=== PATIENT | female | born 1995 | race Two or more races ===

== ENCOUNTER 2020-07-02 23:11 | Inpatient (IN) | payer MEDICAID, OTHER ==
[~2020-07-02] VITALS: Ht 121.9 cm; Wt 29.5 kg
--- NOTE | 2020-07-02 23:15 | NUR ---
PT BIBRA C/O SOB SAT "80'S" PER RA. PT HAS HX OF COGENITAL MALFORMATION AND CARMEN. PT PLACED IN BED 8 ON USER INTERFACE DESIGNER AND PULSE OX. IV ESTABLISHED LH 22G, BLOOD DRAWN, SENT TO LAB. PT PLACED IN A PEDIATRICS GOWN. ON ROOM AIR PT SAT 88%-95%. AT BEDSIDE FOR EVAL. AWAITING ORDERS. PER REPORT, PT HAD COVID XWEEKS AGO.
--- NOTE | 2020-07-02 23:36 | NUR ---
RADIOLOGY AT BEDSIDE
--- NOTE | 2020-07-02 23:44 | NUR ---
SKYLERID SWABBED, SENT TO LAB.
[2020-07-02 23:56] LABS: BASOPHILS # (AUTO) 0.1 /CMM (0.0-0.2); BASOPHILS % (AUTO) 0.6 % (0.0-2.0); EOSINOPHILS % (AUTO) 4.4 % (0.0-6.0); HEMATOCRIT 44 % (33-45); HEMOGLOBIN 14.2 g/dL (11.5-14.8); LYMPHOCYTES # (AUTO) 3.7 /CMM (0.8-4.8); LYMPHOCYTES % (AUTO) 39.1 % (20.0-44.0); MEAN CORPUSCULAR HGB CONC 33 g/dl (31.0-36.0); MEAN CORPUSCULAR VOLUME 90 fL (82-100); MONOCYTES # (AUTO) 0.5 /CMM (0.1-1.30); MONOCYTES % (AUTO) 5.5 % (2.0-12.0); NEUTROPHILS # (AUTO) 4.8 /CMM (1.8-8.9); NEUTROPHILS % (AUTO) 50.4 % (43.0-81.0); PLATELET COUNT (AUTO) 296 /CMM (150-450); RED BLOOD CELL COUNT(AUTO) 4.85 MIL/uL (4.0-5.2); WHITE BLOOD COUNT (AUTO) 9.5 K/uL (4.3-11.0)
[2020-07-03] MEDS ORDERED: DEXAMETHASONE SOD PHOSPHATE 4 MG/ML VIAL IV ONE
[2020-07-03] MEDS ORDERED: DEXAMETHASONE SOD PHOSPHATE 10 MG/ML VIAL ONE (00:05)
[2020-07-03 00:11] LABS: CARBON DIOXIDE 30 mmol/L (21-32); CHLORIDE 100 mmol/L (98-107); CREATININE 0.6 mg/dL (0.6-1.3); GLUCOSE 135 mg/dL (74-106); POTASSIUM 3.5 mmol/L (3.5-5.1); SODIUM SERUM 140 mmol/L (136-145); UREA NITROGEN, BLOOD 17 mg/dL (7-18)
--- NOTE | 2020-07-03 00:11 | NUR ---
ADMISSION PACKET GIVEN TO ADMITTING
[2020-07-03 00:23] LABS: ALANINE AMINOTRANSFERASE 21 U/L (12-78); ALBUMIN 3.2 g/dL (3.4-5.0); ALKALINE PHOSPHATASE 90 U/L (46-116); ASPARTATE AMINOTRANSFERASE 24 U/L (15-37); B-TYPE NATRIURETIC PEPTIDE 144 PG/ML (0-125); BILIRUBIN,DIRECT 0.1 mg/dL (0.0-0.2); BILIRUBIN,TOTAL 0.3 mg/dL (0.2-1.0); TOTAL PROTEIN, SERUM 7.7 g/dL (6.4-8.2)
[2020-07-03] MEDS ORDERED: D5W IV ONE (00:30)
[2020-07-03] MEDS ORDERED: AZITHROMYCIN IV ONE (00:30)
[2020-07-03] MEDS ORDERED: IV NS 0.9% 1,000 ML BAG IV ONE (00:30)
[2020-07-03] MEDS ORDERED: AZITHROMYCIN 500 MG VIAL ONE (00:32)
[2020-07-03] MEDS ORDERED: CEFTRIAXONE 1GM BAG (ER ONLY) 50 ML IV ONE (00:39)
--- NOTE | 2020-07-03 00:43 | NUR ---
PT SAT 88%-93%. I TRIED TO PLACE PT ON NC BUT WAS NOT ABLE TO DUE TO PT BECOMING AGITATED. ER MD AWARE. PT IS ASLEEP, SAT 91% ON ROOM AIR. VSS.
[2020-07-03] MEDS ORDERED: ACETAMINOPHEN 325 MG TABLET PO PRN (01:00)
[2020-07-03] MEDS ORDERED: CEFTRIAXONE 1 G in IV D5W 50 ML IV ONE (01:00)
[2020-07-03] MEDS ORDERED: ONDANSETRON HCL/PF 4 MG/2 ML VIAL IVP PRN (01:00)
--- NOTE | 2020-07-03 01:49 | NUR ---
ROOM 107
--- NOTE | 2020-07-03 02:05 | NUR ---
RN NOTES RECEIVED ER ADMISSION REPORT FROM [facility]. ALL PERTINENT ADMISSION INFO REGARDING PT NOTED. WILL WAIT FOR PT TO BE TRANSFERRED TO UNIT AND ADDRESS NEEDS ACCORDINGLY. SOCIAL SERVICE WORKER MADE AWARE.
--- NOTE | 2020-07-03 02:13 | NUR ---
REPORT GIVEN TO ZOEY LEY FOR HUBER
[2020-07-03] MEDS ORDERED: ALBUTEROL FS 2.5 MG/3 ML VIAL.NEB NEB PRN (02:30)
--- NOTE | 2020-07-03 02:35 | NUR ---
CONTACTED CARROL GREGG NP REGARDING PT'S DIET.
--- NOTE | 2020-07-03 02:35 | NUR ---
RN NOTES RECEIVED PT FROM ER VIA LESLY ACCOMPANIED BY 2 ER STAFF AND TRANSFERRED TO BED VIA 2 PERSON ASSIST. PT IS CONFUSED. PT ON 2L VIA NC ;WITH RESPIRATIONS EVEN AND UNLABORED. COMPREHENSIVE PHYSICAL ASSESSMENT AND PATIENT CARE DONE. CALL LIGHT WITHIN REACH, SAFETY MEASURES AND ISOLATION PRECAUTION IN PLACE, WILL CONTINUE MONITOR AND ASSESS THROUGHOUT THE SHIFT. WILL CARRY OUT MD ORDERS ACCORDINGLY.
--- NOTE | 2020-07-03 02:35 | NUR ---
PT TRANSFERED PER [facility] PROTOCOL
[2020-07-03 03:00] VITALS: BP 138/91
[2020-07-03 04:00] VITALS: BP 138/91
--- NOTE | 2020-07-03 04:05 | NUR ---
RN NOTES -RECEIVED CRITICAL LAB RESULT FOR LACTIC ACID 2.9, STOCK AND STATION AGENT MADE AWARE. WILL INFORM JOEY CARMEN. -COMMUNICATED WITH JOEY CARMEN REGARDING LACTIC ACID AT 2.9, PROVIDED OTHER PERTINENT INFO ABOUT PT. AWAITING FOR RESPONSE. Addendum: 07/03/20 at 0447 by LALIT MCGRAW RN PER JOEY CARMEN, NO FURTHER ORDERS FOR NOW, JUST MAINTAIN NC ON THE PT.
--- NOTE | 2020-07-03 06:30 | NUR ---
RN NOTES CALLED [facility] ([phone]) , SPOKE WITH SYDNEE CHAVIRA FOR DIET OF PT HE SAID G TUBE FEEDING OF OSMOLITE SMALL POUCH 1.2KCAL 8OZ 4X A DAY VIA G TUBE. PRIMARY RN ASK FOR THE CONNECTOR FOR THE G TUBE, HE MENTIONED HE WILL SEND SOMEONE TO BRING THE CONNECTOR FOR THE G TUBE OF THE PATIENT TODAY. RN ACKNOWLEDGED. MANIFOLD BUILDER MADE AWARE. WILL ENDORSE TO AM SHIFT TO F/U AND TO INFORM MD.
--- NOTE | 2020-07-03 06:49 | NUR ---
RN CLOSING NOTES PATIENT REMAINS IN ROOM IN NO SIGNS OF RESPIRATORY DISTRESS. PATIENT SATURATING 96% OF 02. VITAL SIGNS WNL. IV LINE MAINTAINED, INTACT, PATENT AND FLUSHING, NO SITE REDNESS OR INFILTRATION. SAFETY PRECAUTIONS IN PLACE AND COMFORT MEASURES RENDERED. BED IN LOWEST POSITION, CALL LIGHT WITHIN REACH, BREAKS ON, SIDE RAILS UP. ALL NEEDS ATTENDED, MEDICATIONS GIVEN SCHEDULED AND ORDERED ; SHIFT ASSESSMENT/BEDBATH/SKIN CARE DONE. PATIENT KEPT CLEAN AND DRY. WILL ENDORSE TO INCOMING SHIFT FOR HUBER WITH ALL PERTINENT INFO REGARDING PATIENT STATUS, WILL ALSO ADVISE AM SHIFT RN TO F/U ON THE G TUBE CONNECTOR FROM [facility] AND F/U WITH MD TO ADVISE ABOUT THE DIET BEING FOLLOWED BY PT IN THE BOARD & CARE. .OPTICAL GOODS WORKER MADE AWARE.
--- NOTE | 2020-07-03 07:30 | NUR ---
MED SURG OPENING NOTES Patient is alert and responsive to verbal and physical stimuli. Patient is on 02 via n/c with 02 sat of 94% on 2liters 02. Head of bed kept elevated. patient assigned one on one sitter. Bilateral wrist restraints noted with no s/s of skin breakdown. Will continue to monitor. Call light with in reach.
[2020-07-03 08:00] VITALS: BP 104/77
[2020-07-03] MEDS: DEXAMETHASONE SOD PHOSPHATE 4 MG/ML VIAL IV SCH (08:45)
[2020-07-03] MEDS ORDERED: POLY17PO4 GT (08:48)
[2020-07-03] MEDS ORDERED: VITS5OIN2 TP (08:48)
[2020-07-03] MEDS ORDERED: KETO125S TP (08:48)
[2020-07-03] MEDS ORDERED: ACET160E36 GT (08:48)
[2020-07-03] MEDS ORDERED: METO5SOL20 GT (08:48)
[2020-07-03] MEDS ORDERED: LACT10SO3 GT (08:48)
[2020-07-03] MEDS ORDERED: HYDR30CR99 RC (08:48)
[2020-07-03] MEDS ORDERED: CHLO473M5 MM (08:48)
[2020-07-03] MEDS ORDERED: MELA3TAB41 GT (08:48)
[2020-07-03] MEDS ORDERED: CHOL100062 GT (08:48)
[2020-07-03] MEDS ORDERED: MINE105O TP (08:48)
[2020-07-03] MEDS ORDERED: GUAI100S94 GT (08:48)
[2020-07-03] MEDS ORDERED: NYST500P2 TD (08:48)
[2020-07-03] MEDS ORDERED: ALBU2.5V38 IH (08:48)
[2020-07-03] MEDS ORDERED: OMEP20CA15 GT (08:48)
[2020-07-03] MEDS ORDERED: LACT-89 GT (08:48)
[2020-07-03] MEDS ORDERED: ZINC57OI3 TP (08:48)
[2020-07-03] MEDS ORDERED: HYDR28.32 TP (08:48)
[2020-07-03] MEDS ORDERED: CLIN75GE4 TP (08:48)
[2020-07-03] MEDS ORDERED: LORA10TA7 GT (08:48)
[2020-07-03 11:43] LABS: BASOPHILS % (AUTO) 0.3 % (0.0-2.0); EOSINOPHILS % (AUTO) 0.1 % (0.0-6.0); HEMATOCRIT 43 % (33-45); LYMPHOCYTES # (AUTO) 0.9 /CMM (0.8-4.8); LYMPHOCYTES % (AUTO) 6.1 % (20.0-44.0); MEAN CORPUSCULAR HGB CONC 33 g/dl (31.0-36.0); MEAN CORPUSCULAR VOLUME 90 fL (82-100); MONOCYTES # (AUTO) 0.3 /CMM (0.1-1.30); MONOCYTES % (AUTO) 1.8 % (2.0-12.0); NEUTROPHILS # (AUTO) 14.2 /CMM (1.8-8.9); NEUTROPHILS % (AUTO) 91.7 % (43.0-81.0); PLATELET COUNT (AUTO) 284 /CMM (150-450); RED BLOOD CELL COUNT(AUTO) 4.74 MIL/uL (4.0-5.2); WHITE BLOOD COUNT (AUTO) 15.5 K/uL (4.3-11.0)
[2020-07-03 11:50] LABS: CALCIUM, SERUM 9.4 mg/dL (8.5-10.1); CREATININE 0.6 mg/dL (0.6-1.3); POTASSIUM 4.5 mmol/L (3.5-5.1)
[2020-07-03 12:00] VITALS: BP 110/77
[2020-07-03 12:01] LABS: ALBUMIN 3.2 g/dL (3.4-5.0); BILIRUBIN,TOTAL 0.5 mg/dL (0.2-1.0); PHOSPHORUS 3.8 mg/dL (2.5-4.9); TOTAL PROTEIN, SERUM 7.6 g/dL (6.4-8.2)
[2020-07-03 12:37] LABS: THYROID STIMULATING HORMONE 0.533 uIU/mL (0.358-3.74)
[2020-07-03 13:42] LABS: BAND % (MANUAL) 1 % (0.0-5.0); LYMPHOCYTES % (MANUAL) 5 % (16-48); MONOCYTES % (MANUAL) 2 % (0-11.0); NEUTROPHILS % (MANUAL) 92 (42-76)
--- NOTE | 2020-07-03 14:30 | NUR ---
Urine sample collected per MD orders and sent to lab
[2020-07-03 16:00] VITALS: BP 132/91
[2020-07-03 18:48] LABS: BILIRUBIN,URINE NEGATIVE (NEGATIVE); COLOR,URINE YELLOW (YELLOW); LEUKOCYTE ESTERASE ,URINE NEGATIVE (NEGATIVE); NITRITE, URINE NEGATIVE (NEGATIVE); PH,URINE 8.5 (5.0-8.0); PROTEIN,URINE 30 mg/dl (NEGATIVE); UGLUCOSE NEGATIVE (NEGATIVE); UROBILINOGEN,URINE 0.2 EU/dL (0.2)
--- NOTE | 2020-07-03 19:10 | NUR ---
PT RECEIVED IN BED, ALERT, DEVELOPMENTALLY DELAYED AND NON VERBAL. RESPIRATIONS EVEN AND UNLABORED WITH NO S/S OF DYSPNEA OR SOB. PT IS NPO, G- TUBE IN PLACE AND HOB ELEVATED. ASPIRATION PRECAUTIONS ENFORCED. CAREGIVER AT BEDSIDE. MARIAH WRIST RESTRAINTS IN PLACE. SAFETY MAINTAINED. WILL CONTINUE TO MONITOR.
--- NOTE | 2020-07-03 19:37 | NUR ---
MED SURG OPENING NOTES Patient is alert and responsive to verbal and physical stimuli. Patient is on 02 via n/c with 02 sat of 98% on room air. Head of bed kept elevated. Bilateral wrist restraints noted with no s/s of skin breakdown. Will continue to monitor. Call light with in reach.
[2020-07-03 19:49] LABS: BACTERIA,URINE 1+ /HPF (None Seen); RBC,URINE 0-2 /HPF (0-2); TRIPLE PHOSPHATE CRYSTAL,UR Few /HPF (None Seen)
[2020-07-03 19:50] LABS: SQUAMOUS EPITHELIAL CELL,UR 21-50 /HPF (None Seen)
[2020-07-03 20:00] VITALS: BP 111/75
[2020-07-04] VITALS: BP 100/66
[2020-07-04] MEDS: AZITHROMYCIN IV SCH (00:54)
[2020-07-04] MEDS: D5W IV SCH (00:54)
[2020-07-04] MEDS ORDERED: CEFTRIAXONE IV SCH (02:00)
[2020-07-04] MEDS ORDERED: D5W IV SCH (02:00)
[2020-07-04] MEDS: CEFTRIAXONE 1 G in IV D5W 50 ML IV SCH (02:18)
[2020-07-04 04:00] VITALS: BP 97/57
--- NOTE | 2020-07-04 05:25 | NUR ---
PT REMAINS ALERT AND NON VERBAL. RESPIRATIONS EVEN AND UNLABORED WITH NO S/S OF SOB OR DYSPNEA. DRY NON PRODUCTIVE COUGH NOTED AT TIMES. #22 TO LEFT HAND PATENT AND INFUSING NS AT KVO. G TUBE IN PLACE WITH NO REDNESS TO SURROUNDING SKIN . NO TF INFUSING AT THIS TIME. REMAINS NPO PER MD ORDER,. ABDOMINAL BINDER IN PLACE. BILAT WRIST RESTRAINTS IN PLACE. WHEN RELEASED PT ATTEMPTS TO PUT HER RIGHT THUMB IN HER MOUTH. HOB ELEVATED AND ASPIRATION PRECAUTIONS STRICTLY ENCORCED. CALL LIGHT WITHIN REACH. BED IN LOWEST POSITION. SAFETY MAINTAINED. BED IN LOWEST POSITION. WILL CONTINUE TO MONITOR.
--- NOTE | 2020-07-04 07:50 | NUR ---
RN OPENING NOTE PATIENT IS IN BED WITH HOB AT SEMI HCE POSITION. PATIENT IS CURRENTLY ON ROOM AIR WITH NO SIGNS OF LABORED BREATHING. PATIENT IS AOX1. SACRAL REDNESS AND RIGHT HAND DRYNESS ARE NOTED. #22 LHAND IS PATENT, INTACT, AND HAS NO SIGNS OF INFILTRATION. BED IS LOCKED IN THE LOWEST POSITION, CALL STEINER WITHIN REACH, 3 GUARD RAILS RAISED, AND ALL HOSPITAL SAFETY PRECAUTIONS ARE BEING FOLLOWED. WILL CONTINUE TO MONITOR THROUGHOUT SHIFT.
[2020-07-04 08:00] VITALS: BP 110/68
[2020-07-04] MEDS: DEXAMETHASONE SOD PHOSPHATE 4 MG/ML VIAL IV SCH (08:49)
--- NOTE | 2020-07-04 09:08 | NUR ---
WOUND CARE CONSULT: REVIEWED CHART, NURSING DOCUMENTATION AND PHOTOS WHICH INDICATE PEELING SKIN TO RT THUMB, REDNESS TO INNER BUTTOCKS AND PERINEUM, PRESENT ON ADMISSION. PER NURSING REPORT, PT SUCKS HER THUMB AT TIMES. RECOMMENDATIONS MADE FOR SKIN PROTECTION. DISCUSSED WITH NURSING STAFF. PT MOVES LEGS IN BED. CAREGIVER AT BEDSIDE. MD IN AGREEMENT WITH PLAN OF CARE.
[2020-07-04] MEDS ORDERED: Z GUARD REMEDY 2 OZ OINT TP PRN (09:30)
[2020-07-04] MEDS: Z GUARD REMEDY 2 OZ OINT TP SCH (15:47)
[2020-07-04 16:00] VITALS: BP 128/90
[2020-07-04] MEDS: CLOTRIMAZOLE 1% 15 GM TUBE TP SCH (16:19)
[2020-07-04] MEDS: OSMOLITE 1.2 CAL 1,000 ML LIQUID GT SCH (18:21)
--- NOTE | 2020-07-04 19:19 | NUR ---
RN OPENING NOTE PATIENT IS IN BED WITH HOB AT SEMI CHE POSITION. PATIENT IS CURRENTLY ON ROOM AIR WITH NO SIGNS OF LABORED BREATHING. PATIENT IS AOX1. SACRAL REDNESS AND RIGHT HAND DRYNESS/SKIN TEAR HAVE APPROPRIATE DRESSINGS APPLIED. #22 LHAND IS PATENT, INTACT, AND HAS NO SIGNS OF INFILTRATION. GTUBE IS IN PLACE WITH ABDOMINAL BINDER APPLIED. BED IS LOCKED IN THE LOWEST POSITION, CALL STEINER WITHIN REACH, 3 GUARD RAILS RAISED, AND ALL HOSPITAL SAFETY PRECAUTIONS ARE BEING FOLLOWED. WILL ENDORSE TO FINANCE ASSISTANT RN. Addendum: 07/04/20 at 1921 by ARLENE DUQUE RN *RN CLOSING NOTE
--- NOTE | 2020-07-04 19:30 | NUR ---
RN NOTE RECEIVED PT IN BED. AWAKE, NONVERBAL. NO RESP DISTRESS NOTED. O2 SAT AT 100 % ON ROOM AIR. WITH BILATERAL WRIST RESTRAINTS GOOD CIRCULATION AND SKIN INTACT. IV ON LH PATENT AND INTACT, NO SIGNS OF INFECTION NOTED. GTUBE IN PLACE AND PATENT NO RESIDUAL NOTED. ALL SAFETY MEASURES IMPLEMENTED PER PROTOCOL, CALL LIGHT WITHIN REACH, BED LOCKED IN LOWEST POSITION. SIDE RAILS UP.
[2020-07-04 20:00] VITALS: BP 108/83
[2020-07-05] MEDS: D5W IV SCH (00:24)
[2020-07-05] MEDS: AZITHROMYCIN IV SCH (00:24)
[2020-07-05] MEDS: OSMOLITE 1.2 CAL 1,000 ML LIQUID GT SCH ×4 (00:30→18:15)
[2020-07-05] MEDS: CEFTRIAXONE 1 G in IV D5W 50 ML IV SCH (01:47)
[2020-07-05 04:00] VITALS: BP 96/60
[2020-07-05 05:49] LABS: BASOPHILS # (AUTO) 0.1 /CMM (0.0-0.2); BASOPHILS % (AUTO) 0.6 % (0.0-2.0); EOSINOPHILS % (AUTO) 0.3 % (0.0-6.0); HEMATOCRIT 42 % (33-45); HEMOGLOBIN 13.7 g/dL (11.5-14.8); LYMPHOCYTES # (AUTO) 3.8 /CMM (0.8-4.8); LYMPHOCYTES % (AUTO) 27.8 % (20.0-44.0); MEAN CORPUSCULAR HGB CONC 33 g/dl (31.0-36.0); MEAN CORPUSCULAR VOLUME 91 fL (82-100); MONOCYTES # (AUTO) 0.9 /CMM (0.1-1.30); MONOCYTES % (AUTO) 6.8 % (2.0-12.0); NEUTROPHILS # (AUTO) 8.9 /CMM (1.8-8.9); NEUTROPHILS % (AUTO) 64.5 % (43.0-81.0); PLATELET COUNT (AUTO) 315 /CMM (150-450); RED BLOOD CELL COUNT(AUTO) 4.59 MIL/uL (4.0-5.2); WHITE BLOOD COUNT (AUTO) 13.8 K/uL (4.3-11.0)
[2020-07-05 06:11] LABS: CREATININE 0.7 mg/dL (0.6-1.3); POTASSIUM 3.7 mmol/L (3.5-5.1)
--- NOTE | 2020-07-05 07:01 | NUR ---
RN NOTES PT REMAIN STABLE. NO SIGNIFICANT CHANGES NOTED. NO DISTRESS NOTED. PT TOLERATED GTUBE FEEDINGS. NO ASPIRATION NOTED. KEPT HOB ELEVATED. NO RESIDUALS NOTED. REMAIN RESTRAINTS DUE TO BITING AND PULLING LINES. NO NEW SKIN BREAK DOWN NOTED. GOOD HAND CIRCULATION. ALL DUE ATBS GIVEN ORDERED, NO ASE NOTED. ALL SAFETY MEASURES KEPT MAINTAINED.
--- NOTE | 2020-07-05 07:46 | NUR ---
MS RN NOTE PATIENT IN BED ,AWAKE NONVERBAL WITH MENTALLY DELAY ON RA NO SOB NOTED AT THIS TIME, WITH G TUBE IN PLACE ,NO RESIDUAL NOTED AT THIS TIME WITH SOFT RESTRAIN, ORDERED LH HL INTACT, WILL CONT TO MONITOR , BED IN LOWEST AND LOCKED POSITION WILL CONT TO MONITOR
[2020-07-05] MEDS: DEXAMETHASONE SOD PHOSPHATE 4 MG/ML VIAL IV SCH (08:26)
[2020-07-05] MEDS: CLOTRIMAZOLE 1% 15 GM TUBE TP SCH ×2 (08:26→16:14)
[2020-07-05] MEDS: Z GUARD REMEDY 2 OZ OINT TP SCH (08:31)
[2020-07-05] MEDS ORDERED: HOME MED MISCELLANEOUS XX SCH ×2 (10:30)
[2020-07-05] MEDS ORDERED: POLYETHYLENE GLYCOL 3350 17 GM POWD.PACK GT PRN (10:30)
[2020-07-05] MEDS ORDERED: ALBUTEROL FS 2.5 MG/3 ML VIAL.NEB IH PRN (10:30)
[2020-07-05] MEDS ORDERED: GUAIFENESIN 300 MG/15 ML UDC GT PRN (10:30)
[2020-07-05] MEDS ORDERED: KETOCONAZOLE SHAMPOO 120 ML BOTTLE TP PRN (11:00)
[2020-07-05] MEDS ORDERED: CLINDAMYCIN PHOSPHATE-T 60 ML BOTTLE TP PRN (11:00)
[2020-07-05] MEDS ORDERED: METOCLOPRAMIDE HCL 10 MG/10 ML UDC GT PRN (11:30)
[2020-07-05] MEDS ORDERED: MINERAL OIL/PETROL OINT 396 GM JAR TP PRN (11:30)
[2020-07-05] MEDS: LORATADINE 10 MG TABLET GT SCH (11:49)
[2020-07-05] MEDS: CHOLECALCIFEROL 1,000 UNIT TABLET (VIT D3) GT SCH (11:49)
[2020-07-05] MEDS: ENOXAPARIN SODIUM 30 MG/0.3 ML DISP.SYRIN SQ SCH (11:50)
[2020-07-05] MEDS: VITAMINS A AND D 56.7 GM TUBE TP SCH ×2 (12:54→21:36)
[2020-07-05] MEDS: COD LIVER OIL/ZINC OXIDE 120 GM TUBE TP SCH ×2 (12:54→16:11)
[2020-07-05] MEDS: FIXODENT DENTURE ADHESIVE TUBE MM SCH ×2 (12:55→16:11)
[2020-07-05] MEDS ORDERED: OSMOLITE 1.2 CAL 1,000 ML LIQUID GT SCH (13:00)
[2020-07-05 16:00] VITALS: BP 111/76
[2020-07-05] MEDS: HYDROCORTISONE 1% CREAM 28.35 GM TUBE TP SCH (16:13)
[2020-07-05] MEDS: NYSTATIN OINT 100000 UNIT/G 15 GM TUBE TP SCH (16:13)
[2020-07-05] MEDS: LACTULOSE 10 G/15 ML UDC (PYXIS) GT SCH (16:13)
--- NOTE | 2020-07-05 16:25 | NUR ---
RN NOTE 0815: Received patient awake, unable to cooperate. Tolerated room air. With GARMENT PRESSER restraints on for safety. With GT intact, abdominal binder on for safety. HOB remained 40 degrees or higher. On isolation pre for RO Covid, maintained and observed. 1330: No any significant changes noted at this time. Spoke with father via phone, updated re: patient's condition. 1400: Covid PCR resulted, tomasz, made caregiver at bedside aware. 1620: Tried to report to 3W, nurse not available at this time, CN made aware, will F/U.
--- NOTE | 2020-07-05 16:49 | NUR ---
RN NOTE Transferred patient in good condition, VSS. Moved via bed, with caregiver, checked belongings. PIV intact. Kept clean, warm and dry. Needs anticipated. Endorsed care to [facility].
--- NOTE | 2020-07-05 16:50 | NUR ---
m/s engineering scientist: notes received pt from tele 1 unit via bed accompanied by nurse and private caregiver. pt is developmental delayed, mostly moans, unable to comprehend. on ariana wrist soft restraints, released and repositioned. appears comfortable. vss. call light within reach. will continue to monitor.
[2020-07-05 17:00] VITALS: BP 122/55
[2020-07-05] MEDS ORDERED: HYDROCORTISONE CR 30 GM TUBE RC SCH (17:00)
--- NOTE | 2020-07-05 18:20 | NUR ---
m/s unix administrator: notes bolus of osmolite 237ml given via g-tube, familia. well. no s/s of aspiration. private caregiver remains at bedside. needs attended. will continue to monitor.
--- NOTE | 2020-07-05 19:10 | NUR ---
m/s spray technician: notes report given to nick ([email or web address]) for continuity of care.
--- NOTE | 2020-07-05 19:45 | NUR ---
MS/RN OPENING NOTE RECEIVED PATIENT SITTING UP IN BED. AWAKE, ALERT AND ORIENTED X 1. NO SIGNS OR SYMPTOMS OF PAIN NOTED AT THIS TIME. CONTINUES ON ROOM AIR WITH NO SIGNS OR SYMPTOMS OF RESPIRATORY DISTRESS NOTED. IV ACCESS TO LEFT HAND INTACT AND PATENT. CONTINUES ON RESTRAINTS WITH NO SKIN INJURIES NOTED. CALL LIGHT WITHIN REACH. ASPIRATION, FALL AND SAFETY PRECAUTIONS MAINTAINED. WILL CONTINUE TO MONITOR.
[2020-07-05 20:00] VITALS: BP 99/56
[2020-07-06] VITALS: BP 99/56
[2020-07-06] MEDS: AZITHROMYCIN IV SCH (01:09)
[2020-07-06] MEDS: D5W IV SCH (01:09)
[2020-07-06] MEDS: CEFTRIAXONE 1 G in IV D5W 50 ML IV SCH (02:21)
[2020-07-06] MEDS: VITAMINS A AND D 56.7 GM TUBE TP SCH ×2 (04:10→13:22)
[2020-07-06] MEDS: OSMOLITE 1.2 CAL 1,000 ML LIQUID GT SCH ×3 (05:10→12:17)
--- NOTE | 2020-07-06 06:10 | NUR ---
MS/RN CLOSING NOTE PATIENT CURRENTLY SITTING UP IN BED. AWAKE, ALERT AND ORIENTED X 1. NO SIGNS OR SYMPTOMS OF PAIN NOTED THIS SHIFT. GT PATENT WITH NO RESIDUAL NOTED. RECEIVED SCHEDULED BOLUS FEEDS WITH PATIENT TOLERATING WELL. IV ACCESS TO LEFT HAND #22G INTACT AND PATENT. CONTINUES ON IV ABX. CONTINUES ON ROOM AIR WITH O2 SATS 95-97%. NO SIGNS OR SYMPTOMS OF RESPIRATORY DISTRESS. CALL LIGHT WITHIN REACH. CAREGIVER AT BEDSIDE. ASPIRATION, FALL AND SAFETY PRECAUTIONS MAINTAINED. WILL ENDORSE PLAN OF CARE TO ONCOMING SHIFT.
[2020-07-06 07:07] LABS: BASOPHILS # (AUTO) 0.1 /CMM (0.0-0.2); BASOPHILS % (AUTO) 0.7 % (0.0-2.0); EOSINOPHILS % (AUTO) 0.3 % (0.0-6.0); HEMATOCRIT 41 % (33-45); HEMOGLOBIN 13.5 g/dL (11.5-14.8); LYMPHOCYTES # (AUTO) 3.6 /CMM (0.8-4.8); LYMPHOCYTES % (AUTO) 35.8 % (20.0-44.0); MEAN CORPUSCULAR HGB CONC 33 g/dl (31.0-36.0); MEAN CORPUSCULAR VOLUME 91 fL (82-100); MONOCYTES # (AUTO) 0.8 /CMM (0.1-1.30); MONOCYTES % (AUTO) 8.1 % (2.0-12.0); NEUTROPHILS # (AUTO) 5.5 /CMM (1.8-8.9); NEUTROPHILS % (AUTO) 55.1 % (43.0-81.0); PLATELET COUNT (AUTO) 284 /CMM (150-450); RED BLOOD CELL COUNT(AUTO) 4.53 MIL/uL (4.0-5.2); WHITE BLOOD COUNT (AUTO) 10.1 K/uL (4.3-11.0)
--- NOTE | 2020-07-06 07:30 | NUR ---
MS OPENING NOTES Patient was sleeping upon arrival. Patient A/O x1, non verbal. No s/s of respiratory distress, breathing even and unlabored, on RA. Soft restraints in place both wrist. Abdomen soft, no distention, g-tube in place and patent. No reports of pain/discomfort at this time. Safety precautions in place: bed alarm on, bed locked, bed in lowest position. Skin intact. L hand IV 22 guage patent, no swelling or redness. Patient stable at this time. Call light within reach. Patient seen by MD with plans for discharge.
[2020-07-06 07:33] LABS: CALCIUM, SERUM 8.5 mg/dL (8.5-10.1); CREATININE 0.6 mg/dL (0.6-1.3); MAGNESIUM 1.8 mg/dL (1.8-2.4); PHOSPHORUS 3.3 mg/dL (2.5-4.9); POTASSIUM 3.5 mmol/L (3.5-5.1)
[2020-07-06 08:00] VITALS: BP_SYST 107; BP_SYST 135; BP_DIAS 58; BP_DIAS 60
[2020-07-06] MEDS: CHOLECALCIFEROL 1,000 UNIT TABLET (VIT D3) GT SCH (08:21)
[2020-07-06] MEDS: LORATADINE 10 MG TABLET GT SCH (08:21)
[2020-07-06] MEDS: DEXAMETHASONE SOD PHOSPHATE 4 MG/ML VIAL IV SCH (08:22)
[2020-07-06] MEDS: LACTULOSE 10 G/15 ML UDC (PYXIS) GT SCH ×2 (08:41→16:04)
[2020-07-06] MEDS: FIXODENT DENTURE ADHESIVE TUBE MM SCH ×3 (08:42→16:09)
[2020-07-06] MEDS: ENOXAPARIN SODIUM 30 MG/0.3 ML DISP.SYRIN SQ SCH (08:46)
[2020-07-06] MEDS: COD LIVER OIL/ZINC OXIDE 120 GM TUBE TP SCH ×3 (08:47→16:09)
[2020-07-06] MEDS: HYDROCORTISONE 1% CREAM 28.35 GM TUBE TP SCH ×2 (08:48→16:09)
[2020-07-06] MEDS: CLOTRIMAZOLE 1% 15 GM TUBE TP SCH ×2 (08:48→16:09)
[2020-07-06] MEDS: NYSTATIN OINT 100000 UNIT/G 15 GM TUBE TP SCH ×2 (08:49→16:09)
[2020-07-06] MEDS: Z GUARD REMEDY 2 OZ OINT TP SCH (08:50)
[2020-07-06] MEDS ORDERED: PANTOPRAZOLE 40 MG/PACK PACK GT SCH (09:00)
--- NOTE | 2020-07-06 18:45 | NUR ---
PT TRANSFERRED TO [facility] DISCHARGE INSTRUCTIONS GIVEN ORDERED. ALL QUESTIONS AND CONCERNS ADDRESSED. PATIENT VERBALIZED UNDERSTANDING. IV REMVOED WITH CATHETER INTACT, PRESSURE DRESSING APPLIED. MEDICATION RECONCILIATION FORM COMPLETED AND COPY GIVEN TO PATIENT. REPORT GIVEN TO LISA SCHAEFER AT [facility]. PATIENT TRANSPORTED WITH ALL PERSONAL BELONGINGS. NO DISTRESS NOTED AT TIME OF DEPARTURE. Addendum: 07/06/20 at 1850 by RENETTA VILLALPANDO RN PT TRANSFERRED TO [facility] DISCHARGE INSTRUCTIONS GIVEN ORDERED. ALL QUESTIONS AND CONCERNS ADDRESSED. PATIENT UNABLE TO VERBALIZE UNDERSTANDING. IV REMOVED WITH CATHETER INTACT, PRESSURE DRESSING APPLIED. MEDICATION RECONCILIATION FORM COMPLETED AND COPY GIVEN TO PATIENT. PATIENT TRANSPORTED WITH ALL PERSONAL BELONGINGS. NO DISTRESS NOTED AT TIME OF DEPARTURE.
== END 2020-07-06 18:25 | DRG 720 ==
LOC: ER 23:17 → TELE1 07-03 01:53 → TELE-TD 07-03 02:23 → TELE1 07-03 02:55 → MEDSG1 07-03 08:27 → MED 07-05 16:43
PROVIDERS: ADMIT Registered Nurse; ATTEND Nurse Practitioner Acute Care
DX: A41.9 Sepsis, unspecified organism (principal); J96.01 Acute respiratory failure with hypoxia; K21.9 Gastro-esophageal reflux disease without esophagitis; G80.9 Cerebral palsy, unspecified; E87.2 Acidosis; Z86.16 Personal history of COVID-19; J45.909 Unspecified asthma, uncomplicated; J15.9 Unspecified bacterial pneumonia; F72 Severe intellectual disabilities; G47.30 Sleep apnea, unspecified; Z88.5 Allergy status to narcotic agent; Z88.0 Allergy status to penicillin; Z88.8 Allergy status to other drugs, medicaments and biological substances; Y95 Nosocomial condition; Q87.19 Other congenital malformation syndromes predominantly associated with short stature; I26.99 Other pulmonary embolism without acute cor pulmonale; R13.10 Dysphagia, unspecified; F50.89 Other specified eating disorder; Z68.1 Body mass index [BMI] 19.9 or less, adult
CPT/HCPCS: 36415; 71045-TC; 80048-TC; 80053-TC; 80061-TC; 80076-TC; 81001; 82550-TC; 82728-TC; 83605-TC; 83615-TC; 83735-TC; 83880; 84100-TC; 84443-TC; 84484-TC; 84702-TC; 85025-TC; 85378-TC; 86140-TC; 87040-TC; 87081-TC; C9803; G0378; J0456; J0696; J1100; J1650; J7030; J7050; J7060; U0003

== ENCOUNTER 2023-03-05 10:02 | Emergency (ER) | payer MEDICAID ==
[~2023-03-05] VITALS: Ht 121.9 cm; Wt 22.7 kg
[~2023-03-05 10:02] MED LIST: ACET160E36 GT; ALBU2.5V38 IH; CHLO473M5 MM; CHOL100062 GT; CLIN75GE4 TP; GUAI100S94 GT; HYDR28.32 TP; HYDR30CR99 RC; KETO125S TP; LACT-89 GT; LACT10SO3 GT; LORA10TA7 GT; MELA3TAB41 GT; METO5SOL20 GT; MINE105O TP; NYST500P2 TD; OMEP20CA15 GT; POLY17PO4 GT; VITS5OIN2 TP; ZINC57OI3 TP
[2023-03-05 10:43] LABS: BASOPHILS # (AUTO) 0.1 K/uL (0.0-0.2); BASOPHILS % (AUTO) 0.5 % (0.0-2.0); EOSINOPHILS # (AUTO) 0.8 K/uL (0.0-0.7); EOSINOPHILS % (AUTO) 6.8 % (0.0-6.0); HEMATOCRIT 47 % (33-45); HEMOGLOBIN 15.6 g/dL (11.5-14.8); LYMPHOCYTES # (AUTO) 2.4 K/uL (0.8-4.8); LYMPHOCYTES % (AUTO) 20.5 % (20.0-44.0); MEAN CORPUSCULAR HEMOGLOBIN 31 PG (26.0-33.0); MEAN CORPUSCULAR HGB CONC 33 g/dl (31.0-36.0); MEAN CORPUSCULAR VOLUME 95 fL (82-100); MONOCYTES % (AUTO) 8.5 % (2.0-12.0); NEUTROPHILS # (AUTO) 7.5 K/uL (1.8-8.9); NEUTROPHILS % (AUTO) 63.7 % (43.0-81.0); PLATELET COUNT (AUTO) 287 K/uL (150-450); RED BLOOD CELL COUNT(AUTO) 4.95 MIL/uL (4.0-5.2); RED CELL DISTRIBUTION WIDTH 12.7 % (11.5-15.0); WHITE BLOOD COUNT (AUTO) 11.7 K/uL (4.3-11.0)
[2023-03-05] MEDS ORDERED: MINE50OI TP (10:48)
[2023-03-05] MEDS ORDERED: LACT-96 GT (10:48)
[2023-03-05] MEDS ORDERED: LACT1CAP71 GT (10:48)
[2023-03-05] MEDS ORDERED: MULT-16 GT (10:48)
[2023-03-05] MEDS ORDERED: [UNRECOGNIZED DRUG - CODE] TP (10:48)
[2023-03-05] MEDS ORDERED: AMIN30LI2 GT (10:48)
[2023-03-05] MEDS ORDERED: [UNRECOGNIZED DRUG - CODE] GT (10:48)
[2023-03-05] MEDS ORDERED: RISP0.2515 GT (10:48)
[2023-03-05] MEDS ORDERED: SIME-9 GT (10:48)
[2023-03-05] MEDS ORDERED: LOPE-206 GT (10:48)
[2023-03-05] MEDS ORDERED: BUDE0.5A IH (10:48)
[2023-03-05] MEDS ORDERED: KETO5DRO EACHEYE (10:48)
[2023-03-05] MEDS ORDERED: HYDR28.469 TP (10:48)
[2023-03-05] MEDS ORDERED: CALA177L16 TP (10:48)
[2023-03-05 11:00] VITALS: TEMP 98
[2023-03-05 11:23] LABS: INR 1.04 (0.91-1.10); PARTIAL THROMBOPLASTIN TIME 24.7 SEC (24.3-34.3)
[2023-03-05 11:44] LABS: CALCIUM, SERUM 9.1 mg/dL (8.5-10.1); CREATININE 0.4 mg/dL (0.6-1.3); POTASSIUM 3.3 mmol/L (3.5-5.1)
[2023-03-05 11:52] LABS: ALBUMIN 3.4 g/dL (3.4-5.0); BILIRUBIN,DIRECT 0.2 mg/dL (0.0-0.2); BILIRUBIN,TOTAL 0.7 mg/dL (0.2-1.0); TOTAL PROTEIN, SERUM 7.9 g/dL (6.4-8.2)
[2023-03-05] MEDS ORDERED: ZINC OXIDE 56.7 GM TUBE TP PRN (14:00)
[2023-03-05 15:03] LABS: APPEARANCE,URINE CLEAR (CLEAR); BILIRUBIN,URINE NEGATIVE (NEGATIVE); BLOOD, URINE NEGATIVE Ery/uL (NEGATIVE); COLOR,URINE YELLOW (YELLOW); KETONES,URINE 1+ mg/dL (NEGATIVE); LEUKOCYTE ESTERASE ,URINE NEGATIVE (NEGATIVE); NITRITE, URINE NEGATIVE (NEGATIVE); PH,URINE 6.5 (5.0-8.0); PROTEIN,URINE NEGATIVE (NEGATIVE); UGLUCOSE NEGATIVE (NEGATIVE); UROBILINOGEN,URINE 0.2 EU/dL (0.2)
[2023-03-05 15:16] LABS: PREGNANCY TEST URINE QUAL NEGATIVE (NEGATIVE)
[2023-03-05 15:21] LABS: ADD URINE CULTURE NO; BACTERIA,URINE 1+ /HPF (None Seen); RBC,URINE 0-2 /HPF (0-2); SQUAMOUS EPITHELIAL CELL,UR 0-2 /HPF (None Seen); WBC,URINE NONE SEEN /HPF (0-3)
[2023-03-05] MEDS ORDERED: IV NS 0.9% 1,000 ML BAG IV ONE (16:00)
[2023-03-06 02:11] VITALS: BP 115/83; O2SAT 94
== END 2023-03-06 02:26 | disposition short-term general hospital (02) ==
LOC: ER 10:04
DX: U07.1 COVID-19 (principal); F50.89 Other specified eating disorder; G80.9 Cerebral palsy, unspecified; R14.0 Abdominal distension (gaseous); R10.2 Pelvic and perineal pain; K21.9 Gastro-esophageal reflux disease without esophagitis; J45.909 Unspecified asthma, uncomplicated; Z79.899 Other long term (current) drug therapy; Z68.1 Body mass index [BMI] 19.9 or less, adult; Z88.0 Allergy status to penicillin; Z88.5 Allergy status to narcotic agent
CPT/HCPCS: 99285; 74176; 87426; 85025; 80048; 83690; 80076; 84703; 81001; 36415; 85730; 84702; C9803

== ENCOUNTER 2024-02-06 02:30 | Inpatient (IN) | payer MEDICAID ==
[~2024-02-06] VITALS: Ht 106.7 cm; Wt 20.9 kg
[2024-02-06] VITALS (54 sets, daily range): BP systolic 35–95; BP diastolic 21–79; TEMP 97.7–98; O2SAT 75–100
[~2024-02-06 02:30] MED LIST changes: +AMIN30LI2 GT; +BUDE0.5A IH; +CALA177L16 TP; +HYDR28.469 TP; -HYDR30CR99 RC; +KETO5DRO EACHEYE; -LACT-89 GT; +LACT-96 GT; -LACT10SO3 GT; +LACT1CAP71 GT; +LOPE-206 GT; -MINE105O TP; +MINE50OI TP; +MULT-16 GT; +RISP0.2515 GT; +SIME-9 GT; -ZINC57OI3 TP; +[UNRECOGNIZED DRUG - CODE] GT; +[UNRECOGNIZED DRUG - CODE] TP
[2024-02-06] MEDS ORDERED: DEXTROSE 50%-WATER 50 ML DISP.SYRIN ONE (02:54)
[2024-02-06] MEDS ORDERED: EPINEPHRINE (1:10,000) SYRINGE 1 MG/10 ML DISP.SYRIN ONE (03:00)
[2024-02-06] MEDS: SUCCINYLCHOLINE CHLORIDE 20 MG/ML VIAL IV ONE (03:30)
[2024-02-06] MEDS: IV NS 0.9% 1,000 ML IV ONE (03:47)
[2024-02-06] MEDS ORDERED: PROPOFOL 100 ML ONE (03:58)
[2024-02-06] MEDS ORDERED: NOREPINEPHRINE 8MG/250ML RTU 250 ML IV ONE (04:09)
[2024-02-06] MEDS: NOREPINEPHRINE 8 MG in IV D5W 242 ML IV PRN ×2 (04:15→21:11)
[2024-02-06 04:19] LABS: CREATININE 1.1 mg/dL (0.6-1.3); GLUCOSE 110 mg/dL (74-106); UREA NITROGEN, BLOOD 36 mg/dL (7-18)
[2024-02-06 04:21] LABS: MONOCYTES # (AUTO) 0.5 K/uL (0.1-1.30)
[2024-02-06 04:26] LABS: BASOPHILS % (AUTO) 0.5 % (0.0-2.0); EOSINOPHILS % (AUTO) 0.2 % (0.0-6.0); HEMATOCRIT 33 % (33-45); HEMOGLOBIN 9.5 g/dL (11.5-14.8); LYMPHOCYTES # (AUTO) 0.9 K/uL (0.8-4.8); LYMPHOCYTES % (AUTO) 10.5 % (20.0-44.0); MEAN CORPUSCULAR HEMOGLOBIN 32 PG (26.0-33.0); MEAN CORPUSCULAR HGB CONC 29 g/dl (31.0-36.0); MEAN CORPUSCULAR VOLUME 111 fL (82-100); MONOCYTES % (AUTO) 5.9 % (2.0-12.0); NEUTROPHILS # (AUTO) 7.3 K/uL (1.8-8.9); NEUTROPHILS % (AUTO) 82.9 % (43.0-81.0); PLATELET COUNT (AUTO) 154 K/uL (150-450); RED BLOOD CELL COUNT(AUTO) 2.94 MIL/uL (4.0-5.2); RED CELL DISTRIBUTION WIDTH 15.1 % (11.5-15.0); WHITE BLOOD COUNT (AUTO) 8.9 K/uL (4.3-11.0)
[2024-02-06 04:29] LABS: CHLORIDE 134 mmol/L (98-107); POTASSIUM 1.2 mmol/L (3.5-5.1); SODIUM SERUM 159 mmol/L (136-145)
[2024-02-06 04:30] LABS: CALCIUM, SERUM 2.4 mg/dL (8.5-10.1); CARBON DIOXIDE 5 mmol/L (21-32)
[2024-02-06] MEDS: Calcium Gluconate 1GM/10ML 4.65 MEQ in IV NS 0.9% 100 ML IV ONE (04:30)
[2024-02-06] MEDS: POTASSIUM CL. PREMIX PERIPHER. 50 ML IV SCH (04:30)
[2024-02-06 04:33] LABS: ALANINE AMINOTRANSFERASE 67 U/L (12-78); ALKALINE PHOSPHATASE 20 U/L (46-116); ASPARTATE AMINOTRANSFERASE 108 U/L (15-37); BILIRUBIN,TOTAL 0.1 mg/dL (0.2-1.0); NT-PRO BNP 1078 pg/mL (0-125); TOTAL PROTEIN, SERUM 0.7 g/dL (6.4-8.2)
[2024-02-06 04:37] LABS: LACTIC ACID 6.6 mmol/L (0.4-2.0)
[2024-02-06] MEDS ORDERED: POTASSIUM CL. PREMIX PERIPHER. 50 ML ONE ×2 (04:38→05:34)
[2024-02-06] MEDS ORDERED: Calcium Gluconate 0.465 MEQ/ML VIAL IV ONE (04:38)
[2024-02-06] MEDS ORDERED: ALBUMIN 25% 50 ML IV ONE (05:02)
[2024-02-06 05:22] LABS: ABG BASE EXCESS -15.3 mmol/L (-2.0-3.0); ABG OXYGEN SATURATION 99.5 % (94.0-98.0); ABG PCO2 39.9 mmHg (32.0-45.0); ABG PH 7.133 (7.350-7.450); ABG PO2 574.1 mmHg (83.0-108.0); ABG TOTAL HEMOGLOBIN 13.1 G/dL (12.0-16.0); COHb 0.2 % (0.5-1.5); MetHb 0.5 % (0.0-1.5); O2Hb 98.8 % (94.0-97.0); PEEP,BG 0 cm H2O; SITE, ABG LEFT BRACHIAL; VT, ABG 225 mL
[2024-02-06] MEDS ORDERED: VANCOMYCIN HCL 1.25 GM in IV D5W 260 ML IV ONE (05:30)
[2024-02-06] MEDS: ALBUMIN 25% 12.5 GM/50 ML BOTTLE IV ONE (05:35)
[2024-02-06 05:47] LABS: ANISOCYTOSIS 1+; LYMPHOCYTES % (MANUAL) 10 % (16-48); METAMYELOCYTES % 1 % (0-0); MONOCYTES % (MANUAL) 4 % (0-11.0); NEUTROPHILS % (MANUAL) 85 (42-76); PLATELET ESTIMATE ADEQUATE
[2024-02-06] MEDS ORDERED: VANCOMYCIN 500 MG VIAL ONE (05:56)
[2024-02-06] MEDS ORDERED: VANCOMYCIN 1 GM /D5W 250 ML PB IV ONE (05:56)
[2024-02-06] MEDS ORDERED: DOPamine 400MG/D5W 250ML RTU 250 ML ONE (05:57)
[2024-02-06] MEDS: DOPamine 400 MG/D5W 250 ML RTU BAG IV ONE (06:00)
[2024-02-06] MEDS: PROPOFOL 100 ML IV PRN (06:23)
[2024-02-06] MEDS ORDERED: SODIUM BICARBONATE SYR 50 MEQ/50 ML DISP.SYRIN ONE ×2 (06:26→06:35)
[2024-02-06] MEDS: PANTOPRAZOLE 40 MG VIAL IV ONE (06:30)
[2024-02-06] MEDS: SODIUM BICARBONATE SYR 100 MEQ in IV D5W 1,000 ML IV ONE (06:30)
[2024-02-06] MEDS ORDERED: PANTOPRAZOLE 40 MG VIAL ONE (06:43)
[2024-02-06] MEDS: VANCOMYCIN 1 GM in IV D5W 250ml IV ONE (07:00)
[2024-02-06 08:35] LABS: CALCIUM, SERUM 7.7 mg/dL (8.5-10.1); POTASSIUM 6.1 mmol/L (3.5-5.1)
[2024-02-06 08:39] LABS: INR 1.62 (0.91-1.10); PARTIAL THROMBOPLASTIN TIME 28.9 SEC (24.3-34.3); PROTHROMBIN TIME 16.6 SECS (9.2-11.1)
[2024-02-06 08:40] LABS: BILIRUBIN,DIRECT 0.3 mg/dL (0.0-0.2)
[2024-02-06] MEDS ORDERED: ZINC57OI3 TP (08:40)
[2024-02-06] MEDS ORDERED: LINA72CA GT (08:40)
[2024-02-06] MEDS ORDERED: POTA10CA43 GT (08:40)
[2024-02-06] MEDS ORDERED: SIME40DR72 GT (08:40)
[2024-02-06] MEDS ORDERED: LIDO5CRE18 TP (08:40)
[2024-02-06] MEDS ORDERED: [UNRECOGNIZED DRUG - OTHER] TP (08:40)
[2024-02-06] MEDS ORDERED: LACT-89 GT (08:40)
[2024-02-06] MEDS ORDERED: MIRT-90 GT (08:40)
[2024-02-06] MEDS ORDERED: PETR18JE3 TP (08:40)
[2024-02-06 08:49] LABS: CREATININE 5.5 mg/dL (0.6-1.3)
[2024-02-06 09:01] LABS: HEMOGLOBIN 12.2 g/dL (11.5-14.8)
[2024-02-06 09:02] LABS: ABG BASE EXCESS -7.4 mmol/L (-2.0-3.0); ABG OXYGEN SATURATION 95.8 % (94.0-98.0); ABG PCO2 50.4 mmHg (32.0-45.0); ABG PH 7.225 (7.350-7.450); ABG PO2 107.3 mmHg (83.0-108.0); COHb 0.2 % (0.5-1.5); MetHb 0.6 % (0.0-1.5)
[2024-02-06 09:20] LABS: OCCULT BLOOD STOOL POSITIVE (NEGATIVE)
[2024-02-06 09:27] LABS: LACTIC ACID REFLEX 14.4 mmol/L (0.4-1.9)
[2024-02-06 09:46] LABS: APPEARANCE,URINE SLIGHTLY CLOUDY (CLEAR); BILIRUBIN,URINE NEGATIVE (NEGATIVE); BLOOD, URINE 3+ Ery/uL (NEGATIVE); COLOR,URINE YELLOW (YELLOW); KETONES,URINE NEGATIVE (NEGATIVE); LEUKOCYTE ESTERASE ,URINE NEGATIVE (NEGATIVE); NITRITE, URINE NEGATIVE (NEGATIVE); PROTEIN,URINE 2+ mg/dl (NEGATIVE); UGLUCOSE 2+ mg/dL (NEGATIVE); UROBILINOGEN,URINE 0.2 EU/dL (0.2)
[2024-02-06] MEDS ORDERED: SODIUM POLYSTYRENE SULFONATE 15 G/60 ML BOTTLE ONE ×2 (09:59)
[2024-02-06 10:01] LABS: ADD URINE CULTURE NO; BACTERIA,URINE 1+ /HPF (None Seen)
[2024-02-06] MEDS: SODIUM POLYSTYRENE SULFONATE 15 G/60 ML BOTTLE GT ONE (10:40)
[2024-02-06] MEDS ORDERED: MAG HYDROX/AL HYDROX/SIMETH 30 ML UDC PO PRN (12:30)
[2024-02-06] MEDS ORDERED: Z GUARD REMEDY 4 OZ OINT TP PRN (12:30)
[2024-02-06] MEDS ORDERED: ONDANSETRON HCL/PF 4 MG/2 ML VIAL IVP PRN (12:30)
[2024-02-06] MEDS ORDERED: ACETAMINOPHEN 325 MG TABLET PO PRN (12:30)
[2024-02-06] MEDS ORDERED: MAGNESIUM HYDROXIDE 30 ML UDC PO PRN (12:30)
[2024-02-06 13:46] LABS: CALCIUM, SERUM 6.4 mg/dL (8.5-10.1); CREATININE 4.6 mg/dL (0.6-1.3); MAGNESIUM 3.9 mg/dL (1.8-2.4)
[2024-02-06 13:56] LABS: EOSINOPHILS # (AUTO) 0.1 K/uL (0.0-0.7); EOSINOPHILS % (AUTO) 0.5 % (0.0-6.0); HEMATOCRIT 42 % (33-45); HEMOGLOBIN 13.7 g/dL (11.5-14.8); LYMPHOCYTES # (AUTO) 0.5 K/uL (0.8-4.8); LYMPHOCYTES % (AUTO) 3.7 % (20.0-44.0); MEAN CORPUSCULAR HEMOGLOBIN 32 PG (26.0-33.0); MEAN CORPUSCULAR HGB CONC 33 g/dl (31.0-36.0); MEAN CORPUSCULAR VOLUME 97 fL (82-100); MONOCYTES # (AUTO) 0.3 K/uL (0.1-1.30); MONOCYTES % (AUTO) 2.5 % (2.0-12.0); NEUTROPHILS # (AUTO) 11.6 K/uL (1.8-8.9); NEUTROPHILS % (AUTO) 93.3 % (43.0-81.0); PHOSPHORUS 9.4 mg/dL (2.5-4.9); PLATELET COUNT (AUTO) 177 K/uL (150-450); RED BLOOD CELL COUNT(AUTO) 4.31 MIL/uL (4.0-5.2); RED CELL DISTRIBUTION WIDTH 13.7 % (11.5-15.0); WHITE BLOOD COUNT (AUTO) 12.4 K/uL (4.3-11.0)
[2024-02-06] MEDS ORDERED: DOPamine 800 MG in IV D5W 250 ML IV PRN (14:30)
[2024-02-06 15:17] LABS: ANISOCYTOSIS 1+; BAND % (MANUAL) 11 % (0.0-5.0); LYMPHOCYTES % (MANUAL) 15 % (16-48); MONOCYTES % (MANUAL) 2 % (0-11.0); NEUTROPHILS % (MANUAL) 72 (42-76); PLATELET ESTIMATE ADEQUATE
[2024-02-06] MEDS ORDERED: DOPamine 400 MG in IV D5W 250 ML IV PRN (15:30)
[2024-02-06] MEDS: CEFEPIME 2 GM in IV D5W 100 ML IV ONE (15:36)
[2024-02-06] MEDS ORDERED: PHENYLEPHRINE 50 MG in IV NS 0.9% 245 ML IV PRN (16:00)
[2024-02-06] MEDS: D5W IV PRN (16:26)
[2024-02-06] MEDS: PHENYLEPHRINE IV PRN (16:26)
[2024-02-06] MEDS: Sodium Bicarbonate 50 MEQ in IV D5 / 0.2% NACL 1,000 ML IV SCH (17:14)
[2024-02-06] MEDS: BLOOD SUGAR DIAGNOSTIC 1 EACH STRIP VI SCH (17:39)
[2024-02-06] MEDS: *INSULIN REGULAR(HUMULIN R)HUM 100 UNIT/ML VIAL SQ PRN (17:41)
[2024-02-06 18:56] LABS: ABG BASE EXCESS 2.1 mmol/L (-2.0-3.0); ABG OXYGEN SATURATION 81.4 % (94.0-98.0); ABG PCO2 47.5 mmHg (32.0-45.0); ABG PH 7.386 (7.350-7.450); ABG PO2 50.7 mmHg (83.0-108.0); ABG TOTAL HEMOGLOBIN 14.1 G/dL (12.0-16.0); COHb 0.1 % (0.5-1.5); MetHb 0.4 % (0.0-1.5); SITE, ABG RIGHT FEMORAL
[2024-02-06] MEDS ORDERED: KETAMINE HCL(200MG/20ML) 10 MG/ML VIAL IV PRN (19:30)
[2024-02-06 20:27] LABS: ABG BASE EXCESS 1.8 mmol/L (-2.0-3.0); ABG OXYGEN SATURATION 85.7 % (94.0-98.0); ABG PCO2 47.8 mmHg (32.0-45.0); ABG PH 7.379 (7.350-7.450); ABG PO2 55.9 mmHg (83.0-108.0); ABG TOTAL HEMOGLOBIN 14.1 G/dL (12.0-16.0); COHb 0.1 % (0.5-1.5); MetHb 0.4 % (0.0-1.5); O2Hb 85.3 % (94.0-97.0); SITE, ABG ALINE
[2024-02-06] MEDS: DOPamine 400 MG in IV D5W 250 ML IV PRN (20:57)
[2024-02-06 22:26] LABS: ABG OXYGEN SATURATION 93.2 % (94.0-98.0); ABG PCO2 63.4 mmHg (32.0-45.0); ABG PH 7.282 (7.350-7.450); ABG PO2 80.3 mmHg (83.0-108.0); ABG TOTAL HEMOGLOBIN 13.8 G/dL (12.0-16.0); COHb 0.3 % (0.5-1.5); MetHb 0.4 % (0.0-1.5); O2Hb 92.5 % (94.0-97.0); SITE, ABG ALINE
[2024-02-07] VITALS (95 sets, daily range): BP systolic 59–172; BP diastolic 12–105; TEMP 97.4–98.6; O2SAT 95–100
[2024-02-07] MEDS: HYDROCORTISONE SOD SUCCINATE 100 MG/2 ML VIAL IV SCH (00:06)
[2024-02-07 00:22] LABS: ABG OXYGEN SATURATION 97.8 % (94.0-98.0); ABG PCO2 48.6 mmHg (32.0-45.0); ABG PH 7.362 (7.350-7.450); ABG TOTAL HEMOGLOBIN 12.9 G/dL (12.0-16.0); COHb 0.3 % (0.5-1.5); MetHb 0.5 % (0.0-1.5); SITE, ABG ALINE
[2024-02-07 04:59] LABS: BASOPHILS % (AUTO) 0.3 % (0.0-2.0); EOSINOPHILS % (AUTO) 0.3 % (0.0-6.0); HEMATOCRIT 35 % (33-45); HEMOGLOBIN 11.7 g/dL (11.5-14.8); LYMPHOCYTES # (AUTO) 0.4 K/uL (0.8-4.8); LYMPHOCYTES % (AUTO) 18.4 % (20.0-44.0); MEAN CORPUSCULAR HEMOGLOBIN 31 PG (26.0-33.0); MEAN CORPUSCULAR HGB CONC 34 g/dl (31.0-36.0); MEAN CORPUSCULAR VOLUME 94 fL (82-100); MONOCYTES # (AUTO) 0.1 K/uL (0.1-1.30); MONOCYTES % (AUTO) 4.6 % (2.0-12.0); NEUTROPHILS # (AUTO) 1.6 K/uL (1.8-8.9); NEUTROPHILS % (AUTO) 76.4 % (43.0-81.0); PLATELET COUNT (AUTO) 57 K/uL (150-450); RED BLOOD CELL COUNT(AUTO) 3.72 MIL/uL (4.0-5.2); RED CELL DISTRIBUTION WIDTH 13.3 % (11.5-15.0); WHITE BLOOD COUNT (AUTO) 2.2 K/uL (4.3-11.0)
[2024-02-07 05:24] LABS: CREATININE 3.9 mg/dL (0.6-1.3); MAGNESIUM 3.2 mg/dL (1.8-2.4); PHOSPHORUS 7.5 mg/dL (2.5-4.9)
[2024-02-07 08:15] LABS: ABG BASE EXCESS 2.8 mmol/L (-2.0-3.0); ABG OXYGEN SATURATION 98.6 % (94.0-98.0); ABG PCO2 39.3 mmHg (32.0-45.0); ABG PH 7.452 (7.350-7.450); ABG PO2 157.6 mmHg (83.0-108.0); ABG TOTAL HEMOGLOBIN 11.9 G/dL (12.0-16.0); COHb 0.3 % (0.5-1.5); MetHb 0.1 % (0.0-1.5); O2Hb 98.2 % (94.0-97.0); SITE, ABG ALINE
[2024-02-07 08:59] LABS: BAND % (MANUAL) 8 % (0.0-5.0); LYMPHOCYTES % (MANUAL) 36 % (16-48); MONOCYTES % (MANUAL) 26 % (0-11.0); NEUTROPHILS % (MANUAL) 30 (42-76)
[2024-02-07 09:01] LABS: ANISOCYTOSIS 1+; PLATELET ESTIMATE DECREASED
[2024-02-07] MEDS: PANTOPRAZOLE 40 MG VIAL IV SCH (09:10)
[2024-02-07] MEDS: INSULIN REGULAR, HUMAN 100 UNIT/ML 3 ML VIAL SQ PRN (09:14)
[2024-02-07] MEDS: IV LR 1000 ML 1,000 ML IV PRN (09:48)
[2024-02-07] MEDS: POTASSIUM CL. PREMIX PERIPHER. 50 ML IV SCH (10:18)
[2024-02-07] MEDS ORDERED: POLYVINYL ALCOHOL 15 ML BOTTLE EACHEYE PRN (11:00)
[2024-02-07] MEDS ORDERED: ALBUMIN 25% 25 GM in PREMIX 1 EA IV SCH (12:00)
[2024-02-07] MEDS: PHENYLEPHRINE 100 MG in IV NS 0.9% 240 ML IV PRN (12:38)
[2024-02-07] MEDS: ALBUMIN 25% 12.5 GM in PREMIX 1 EA IV SCH (13:26)
[2024-02-07] MEDS: NOREPINEPHRINE 32 MG in IV NS 0.9% 218 ML IV PRN (13:28)
[2024-02-07] MEDS: CEFEPIME 1 GM in IV D5W 50 ML IV SCH (14:06)
[2024-02-07 15:21] LABS: CALCIUM, SERUM 6.7 mg/dL (8.5-10.1); CREATININE 3.8 mg/dL (0.6-1.3); MAGNESIUM 2.9 mg/dL (1.8-2.4); PHOSPHORUS 7.6 mg/dL (2.5-4.9); POTASSIUM 5.2 mmol/L (3.5-5.1)
[2024-02-07 16:48] LABS: APPEARANCE,URINE CLEAR (CLEAR); BILIRUBIN,URINE NEGATIVE (NEGATIVE); BLOOD, URINE 3+ Ery/uL (NEGATIVE); COLOR,URINE YELLOW (YELLOW); KETONES,URINE NEGATIVE (NEGATIVE); LEUKOCYTE ESTERASE ,URINE NEGATIVE (NEGATIVE); NITRITE, URINE NEGATIVE (NEGATIVE); PROTEIN,URINE TRACE mg/dl (NEGATIVE); UGLUCOSE TRACE mg/dL (NEGATIVE); UROBILINOGEN,URINE 0.2 EU/dL (0.2)
[2024-02-07 16:54] LABS: CREATININE, URINE 21.9 MG/DL (30.0-125.0); URINE TOTAL PROTEIN 65.3 mg/dL (0-11.9)
[2024-02-07] MEDS: POLYVINYL ALCOHOL 15 ML BOTTLE EACHEYE SCH (17:17)
[2024-02-07 17:30] LABS: ADD URINE CULTURE YES; BACTERIA,URINE 2+ /HPF (None Seen); MUCUS,URINE Moderate /LPF (None Seen); WBC,URINE 0-2 /HPF (0-3)
[2024-02-07] MEDS: DEXTROSE 50%-WATER 50 ML DISP.SYRIN IV PRN (17:32)
[2024-02-07 18:35] LABS: EOSINOPHIL,URINE None Seen
[2024-02-08] VITALS (102 sets, daily range): BP systolic 79–125; BP diastolic 40–75; TEMP 97.8–98.4; O2SAT 77–100
[2024-02-08] MEDS: BLOOD SUGAR DIAGNOSTIC 1 EACH STRIP IN SCH (00:11)
[2024-02-08] MEDS: DEXTROSE 50%-WATER 50 ML DISP.SYRIN IV PRN (00:15)
[2024-02-08] MEDS: INSULIN REGULAR, HUMAN 100 UNIT/ML 3 ML VIAL SQ PRN (05:25)
[2024-02-08 07:21] LABS: ALBUMIN 2.3 g/dL (3.4-5.0); BILIRUBIN,TOTAL 1.9 mg/dL (0.2-1.0); CALCIUM, SERUM 7.4 mg/dL (8.5-10.1); CREATININE 3.7 mg/dL (0.6-1.3); MAGNESIUM 2.7 mg/dL (1.8-2.4); PHOSPHORUS 6.7 mg/dL (2.5-4.9); POTASSIUM 3.8 mmol/L (3.5-5.1); TOTAL PROTEIN, SERUM 4.4 g/dL (6.4-8.2)
[2024-02-08] MEDS: IV D5/0.45 NACL 1,000 ML IV PRN (08:06)
[2024-02-08 10:27] LABS: BASOPHILS # (AUTO) 0.1 K/uL (0.0-0.2); BASOPHILS % (AUTO) 0.3 % (0.0-2.0); EOSINOPHILS # (AUTO) 0.2 K/uL (0.0-0.7); EOSINOPHILS % (AUTO) 0.8 % (0.0-6.0); HEMATOCRIT 27 % (33-45); LYMPHOCYTES # (AUTO) 0.3 K/uL (0.8-4.8); LYMPHOCYTES % (AUTO) 1.6 % (20.0-44.0); MEAN CORPUSCULAR HEMOGLOBIN 32 PG (26.0-33.0); MEAN CORPUSCULAR HGB CONC 34 g/dl (31.0-36.0); MEAN CORPUSCULAR VOLUME 94 fL (82-100); MONOCYTES # (AUTO) 0.1 K/uL (0.1-1.30); MONOCYTES % (AUTO) 0.7 % (2.0-12.0); NEUTROPHILS # (AUTO) 19.8 K/uL (1.8-8.9); NEUTROPHILS % (AUTO) 96.6 % (43.0-81.0); RED BLOOD CELL COUNT(AUTO) 2.86 MIL/uL (4.0-5.2); RED CELL DISTRIBUTION WIDTH 13.1 % (11.5-15.0); WHITE BLOOD COUNT (AUTO) 20.4 K/uL (4.3-11.0)
[2024-02-08 10:33] LABS: PLATELET COUNT (AUTO) 5 K/uL (150-450)
[2024-02-08 10:50] LABS: LYMPHOCYTES % (MANUAL) 5 % (16-48); MONOCYTES % (MANUAL) 1 % (0-11.0); NEUTROPHILS % (MANUAL) 94 (42-76); PLATELET ESTIMATE DECREASED
[2024-02-08 10:51] LABS: ANISOCYTOSIS 1+
[2024-02-08 11:08] LABS: ABG BASE EXCESS 5.2 mmol/L (-2.0-3.0); ABG OXYGEN SATURATION 98.9 % (94.0-98.0); ABG PCO2 35.6 mmHg (32.0-45.0); ABG PH 7.518 (7.350-7.450); ABG PO2 214.9 mmHg (83.0-108.0); ABG TOTAL HEMOGLOBIN 9.7 G/dL (12.0-16.0); COHb 0.2 % (0.5-1.5); MetHb 0.1 % (0.0-1.5); O2Hb 98.6 % (94.0-97.0); SITE, ABG ALINE
[2024-02-08 11:16] LABS: EOSINOPHILS # (AUTO) 0.1 K/uL (0.0-0.7); EOSINOPHILS % (AUTO) 0.4 % (0.0-6.0); HEMATOCRIT 26 % (33-45); HEMOGLOBIN 8.9 g/dL (11.5-14.8); LYMPHOCYTES # (AUTO) 0.3 K/uL (0.8-4.8); LYMPHOCYTES % (AUTO) 1.7 % (20.0-44.0); MEAN CORPUSCULAR HEMOGLOBIN 31 PG (26.0-33.0); MEAN CORPUSCULAR HGB CONC 34 g/dl (31.0-36.0); MEAN CORPUSCULAR VOLUME 93 fL (82-100); MONOCYTES % (AUTO) 0.1 % (2.0-12.0); NEUTROPHILS # (AUTO) 19.8 K/uL (1.8-8.9); NEUTROPHILS % (AUTO) 97.8 % (43.0-81.0); RED BLOOD CELL COUNT(AUTO) 2.83 MIL/uL (4.0-5.2); RED CELL DISTRIBUTION WIDTH 12.9 % (11.5-15.0); WHITE BLOOD COUNT (AUTO) 20.2 K/uL (4.3-11.0)
[2024-02-08 12:17] LABS: PLATELET COUNT (AUTO) 5 K/uL (150-450)
[2024-02-08] MEDS ORDERED: PROPOFOL 200 MG/20 ML VIAL IV ONE (13:00)
[2024-02-08 19:50] LABS: CALCIUM, SERUM 6.3 mg/dL (8.5-10.1)
[2024-02-08 19:51] LABS: POTASSIUM 2.7 mmol/L (3.5-5.1)
[2024-02-08] MEDS: POTASSIUM CL. PREMIX PERIPHER. 50 ML IV SCH (20:45)
[2024-02-08] MEDS: VANCOMYCIN 500 MG in IV D5W 100 ML IV SCH (20:56)
[2024-02-08] MEDS ORDERED: VANCOMYCIN 500 MG in IV D5W 100 ML IV SCH (21:00)
[2024-02-09] VITALS (94 sets, daily range): BP systolic 95–140; BP diastolic 42–81; TEMP 96.8–98; O2SAT 93–100
[2024-02-09 04:41] LABS: BASOPHILS % (AUTO) 0.2 % (0.0-2.0); EOSINOPHILS % (AUTO) 0.3 % (0.0-6.0); LYMPHOCYTES # (AUTO) 0.1 K/uL (0.8-4.8); LYMPHOCYTES % (AUTO) 1.6 % (20.0-44.0); MEAN CORPUSCULAR HEMOGLOBIN 33 PG (26.0-33.0); MEAN CORPUSCULAR HGB CONC 34 g/dl (31.0-36.0); MEAN CORPUSCULAR VOLUME 95 fL (82-100); MONOCYTES % (AUTO) 0.4 % (2.0-12.0); NEUTROPHILS % (AUTO) 97.5 % (43.0-81.0); RED BLOOD CELL COUNT(AUTO) 2.09 MIL/uL (4.0-5.2); RED CELL DISTRIBUTION WIDTH 13.3 % (11.5-15.0); WHITE BLOOD COUNT (AUTO) 7.2 K/uL (4.3-11.0)
[2024-02-09 04:43] LABS: ALBUMIN 1.6 g/dL (3.4-5.0); BILIRUBIN,DIRECT 0.4 mg/dL (0.0-0.2); BILIRUBIN,TOTAL 1.2 mg/dL (0.2-1.0); CALCIUM, SERUM 7.7 mg/dL (8.5-10.1); CREATININE 3.6 mg/dL (0.6-1.3); MAGNESIUM 2.6 mg/dL (1.8-2.4); POTASSIUM 4.5 mmol/L (3.5-5.1); TOTAL PROTEIN, SERUM 4.6 g/dL (6.4-8.2)
[2024-02-09 04:44] LABS: HEMATOCRIT 20 % (33-45); HEMOGLOBIN 6.8 g/dL (11.5-14.8)
[2024-02-09 04:45] LABS: PLATELET COUNT (AUTO) 4 K/uL (150-450)
[2024-02-09 04:55] LABS: PHOSPHORUS 8.2 mg/dL (2.5-4.9)
[2024-02-09 05:08] LABS: BAND % (MANUAL) 5 % (0.0-5.0); LYMPHOCYTES % (MANUAL) 1 % (16-48); METAMYELOCYTES % 1 % (0-0); MONOCYTES % (MANUAL) 1 % (0-11.0); NEUTROPHILS % (MANUAL) 92 (42-76); PLATELET ESTIMATE DECREASED
[2024-02-09 06:09] LABS: ABG BASE EXCESS -1.5 mmol/L (-2.0-3.0); ABG OXYGEN SATURATION 96.6 % (94.0-98.0); ABG PCO2 52.4 mmHg (32.0-45.0); ABG PO2 98.4 mmHg (83.0-108.0); ABG TOTAL HEMOGLOBIN 9.1 G/dL (12.0-16.0); COHb 0.3 % (0.5-1.5); MetHb 0.3 % (0.0-1.5); SITE, ABG ALINE
[2024-02-09] MEDS: NOREPINEPHRINE 8 MG in IV D5W 250ML IV PRN (17:44)
[2024-02-10] VITALS (102 sets, daily range): BP systolic 88–140; BP diastolic 45–83; TEMP 97.5–98; O2SAT 88–100
[2024-02-10 02:06] LABS: PTH, INTACT 395 pg/mL (15-65)
[2024-02-10 03:15] LABS: PREGNANCY TEST URINE QUAL NEGATIVE (NEGATIVE)
[2024-02-10 04:35] LABS: BASOPHILS % (AUTO) 0.1 % (0.0-2.0); EOSINOPHILS % (AUTO) 0.1 % (0.0-6.0); HEMATOCRIT 31 % (33-45); HEMOGLOBIN 10.5 g/dL (11.5-14.8); LYMPHOCYTES % (AUTO) 0.5 % (20.0-44.0); MEAN CORPUSCULAR HEMOGLOBIN 31 PG (26.0-33.0); MEAN CORPUSCULAR HGB CONC 34 g/dl (31.0-36.0); MEAN CORPUSCULAR VOLUME 90 fL (82-100); MONOCYTES % (AUTO) 0.1 % (2.0-12.0); NEUTROPHILS # (AUTO) 9.6 K/uL (1.8-8.9); NEUTROPHILS % (AUTO) 99.2 % (43.0-81.0); RED BLOOD CELL COUNT(AUTO) 3.45 MIL/uL (4.0-5.2); RED CELL DISTRIBUTION WIDTH 15.3 % (11.5-15.0); WHITE BLOOD COUNT (AUTO) 9.7 K/uL (4.3-11.0)
[2024-02-10 04:38] LABS: CREATININE 2.5 mg/dL (0.6-1.3)
[2024-02-10 04:39] LABS: PLATELET COUNT (AUTO) 2 K/uL (150-450)
[2024-02-10 04:40] LABS: POTASSIUM 2.4 mmol/L (3.5-5.1)
[2024-02-10] MEDS: POTASSIUM CL. PREMIX PERIPHER. 50 ML IV SCH (05:14)
[2024-02-10 05:44] LABS: ANISOCYTOSIS 1+; BAND % (MANUAL) 15 % (0.0-5.0); LYMPHOCYTES % (MANUAL) 3 % (16-48); MONOCYTES % (MANUAL) 1 % (0-11.0); NEUTROPHILS % (MANUAL) 81 (42-76); PLATELET ESTIMATE DECREASED
[2024-02-10 09:09] LABS: ABG PCO2 44.9 mmHg (32.0-45.0); ABG PO2 194.1 mmHg (83.0-108.0); COHb 0.1 % (0.5-1.5); MetHb 0.3 % (0.0-1.5); O2Hb 98.6 % (94.0-97.0); SITE, ABG LEFT FEMORAL
[2024-02-10] MEDS ORDERED: TPN/PPN PER PHARMACY IV PRN (10:00)
[2024-02-10 11:45] LABS: HEMOGLOBIN 11.3 g/dL (11.5-14.8)
[2024-02-10 11:50] LABS: CALCIUM, SERUM 7.6 mg/dL (8.5-10.1); CREATININE 2.9 mg/dL (0.6-1.3); POTASSIUM 4.1 mmol/L (3.5-5.1)
[2024-02-10 11:54] LABS: PREALBUMIN 7.7 MG/DL (18.0-35.7)
[2024-02-10 12:07] LABS: INR 1.32 (0.91-1.10); PARTIAL THROMBOPLASTIN TIME 36.7 SEC (24.3-34.3); PROTHROMBIN TIME 13.7 SECS (9.2-11.1)
[2024-02-10 12:13] LABS: D-DIMER 10.17 mg/L(FEU (0.17-0.50)
[2024-02-10 12:41] LABS: ALBUMIN 1.5 g/dL (3.4-5.0)
[2024-02-10 13:58] LABS: ABG BASE EXCESS -6.1 mmol/L (-2.0-3.0); ABG OXYGEN SATURATION 98.5 % (94.0-98.0); ABG PCO2 43.5 mmHg (32.0-45.0); ABG PH 7.286 (7.350-7.450); ABG PO2 164.2 mmHg (83.0-108.0); ABG TOTAL HEMOGLOBIN 10.9 G/dL (12.0-16.0); COHb 0.2 % (0.5-1.5); MetHb 0.3 % (0.0-1.5); SITE, ABG CL
[2024-02-10] MEDS: TPN #1 IV SCH (15:05)
[2024-02-11] VITALS (96 sets, daily range): BP systolic 92–143; BP diastolic 50–88; TEMP 97.5–98.2; O2SAT 93–100
[2024-02-11 05:07] LABS: BASOPHILS % (AUTO) 0.1 % (0.0-2.0); HEMATOCRIT 29 % (33-45); HEMOGLOBIN 9.8 g/dL (11.5-14.8); LYMPHOCYTES # (AUTO) 0.1 K/uL (0.8-4.8); MEAN CORPUSCULAR HEMOGLOBIN 31 PG (26.0-33.0); MEAN CORPUSCULAR HGB CONC 34 g/dl (31.0-36.0); MEAN CORPUSCULAR VOLUME 90 fL (82-100); MONOCYTES % (AUTO) 0.2 % (2.0-12.0); NEUTROPHILS # (AUTO) 13.1 K/uL (1.8-8.9); NEUTROPHILS % (AUTO) 98.7 % (43.0-81.0); RED CELL DISTRIBUTION WIDTH 15.9 % (11.5-15.0); WHITE BLOOD COUNT (AUTO) 13.2 K/uL (4.3-11.0)
[2024-02-11 05:12] LABS: INR 1.22 (0.91-1.10); PARTIAL THROMBOPLASTIN TIME 34.4 SEC (24.3-34.3); PROTHROMBIN TIME 12.8 SECS (9.2-11.1)
[2024-02-11 05:17] LABS: D-DIMER 8.61 mg/L(FEU (0.17-0.50)
[2024-02-11 05:19] LABS: PLATELET COUNT (AUTO) 8 K/uL (150-450)
[2024-02-11 05:41] LABS: CALCIUM, SERUM 7.1 mg/dL (8.5-10.1); CREATININE 2.5 mg/dL (0.6-1.3); MAGNESIUM 1.8 mg/dL (1.8-2.4); PHOSPHORUS 5.8 mg/dL (2.5-4.9)
[2024-02-11 05:44] LABS: POTASSIUM 2.4 mmol/L (3.5-5.1)
[2024-02-11 05:49] LABS: RHEUMATOID FACTOR SCREEN NEGATIVE (NEGATIVE)
[2024-02-11 06:00] LABS: THYROID STIMULATING HORMONE 0.7 uIU/mL (0.358-3.74)
[2024-02-11 06:06] LABS: BAND % (MANUAL) 6 % (0.0-5.0); LYMPHOCYTES % (MANUAL) 1 % (16-48); MONOCYTES % (MANUAL) 1 % (0-11.0); NEUTROPHILS % (MANUAL) 92 (42-76)
[2024-02-11 06:07] LABS: ANISOCYTOSIS 2+; OVALOCYTES 1+; PLATELET ESTIMATE DECRE
[2024-02-11] MEDS: POTASSIUM CL. PREMIX PERIPHER. 50 ML IV SCH (06:11)
[2024-02-11 06:18] LABS: C-REACTIVE PROTEIN 13.33 mg/dL (0.0-0.30)
[2024-02-11 07:12] LABS: *SPE A/G RATIO 1.7 (0.7-1.7); *SPE ALBUMIN 2.5 g/dL (2.9-4.4); *SPE ALPHA-1-GLOBULIN 0.3 g/dL (0.0-0.4); *SPE ALPHA-2-GLOBULIN 0.4 g/dL (0.4-1.0); *SPE BETA GLOBULIN 0.4 g/dL (0.7-1.3); *SPE GLOBULIN, TOTAL 1.5 g/dL (2.2-3.9); *SPE M-SPIKE Not Observed g/dL (Not Observed); *SPEGAMMA GLOBULIN 0.4 g/dL (0.4-1.8)
[2024-02-11 08:26] LABS: ABG BASE EXCESS -6.4 mmol/L (-2.0-3.0); ABG OXYGEN SATURATION 94.8 % (94.0-98.0); ABG PCO2 36.8 mmHg (32.0-45.0); ABG PH 7.328 (7.350-7.450); ABG PO2 75.6 mmHg (83.0-108.0); ABG TOTAL HEMOGLOBIN 11.2 G/dL (12.0-16.0); COHb 0.3 % (0.5-1.5); MetHb 0.3 % (0.0-1.5); O2Hb 94.2 % (94.0-97.0); SITE, ABG ALINE
[2024-02-11] MEDS: ACETAMINOPHEN 325 MG TABLET PO ONE (11:00)
[2024-02-11] MEDS: PHYTONADIONE 10 MG in IV D5W 50 ML SQ ONE (11:26)
[2024-02-11] MEDS: diphenhydrAMINE HCL 50 MG/ML VIAL IV ONE (13:09)
[2024-02-11] MEDS: TPN BAG #2 IV SCH (14:48)
[2024-02-11] MEDS ORDERED: TPN #2 IV SCH (15:00)
[2024-02-11] MEDS: SOD FERRIC GLUC 125 MG in IV NS 0.9% 100 ML IV SCH (17:14)
[2024-02-12] VITALS (43 sets, daily range): BP systolic 90–119; BP diastolic 47–75; TEMP 97.7–98; O2SAT 91–100
[2024-02-12 05:13] LABS: BASOPHILS % (AUTO) 0.1 % (0.0-2.0); EOSINOPHILS % (AUTO) 0.1 % (0.0-6.0); HEMATOCRIT 27 % (33-45); HEMOGLOBIN 8.9 g/dL (11.5-14.8); LYMPHOCYTES # (AUTO) 0.2 K/uL (0.8-4.8); MEAN CORPUSCULAR HEMOGLOBIN 30 PG (26.0-33.0); MEAN CORPUSCULAR HGB CONC 34 g/dl (31.0-36.0); MEAN CORPUSCULAR VOLUME 90 fL (82-100); MONOCYTES % (AUTO) 0.2 % (2.0-12.0); NEUTROPHILS # (AUTO) 17.4 K/uL (1.8-8.9); NEUTROPHILS % (AUTO) 98.6 % (43.0-81.0); RED BLOOD CELL COUNT(AUTO) 2.95 MIL/uL (4.0-5.2); RED CELL DISTRIBUTION WIDTH 15.7 % (11.5-15.0); WHITE BLOOD COUNT (AUTO) 17.7 K/uL (4.3-11.0)
[2024-02-12 05:15] LABS: CREATININE 2.2 mg/dL (0.6-1.3); MAGNESIUM 1.7 mg/dL (1.8-2.4); PHOSPHORUS 4.9 mg/dL (2.5-4.9)
[2024-02-12 05:21] LABS: PLATELET COUNT (AUTO) 31 K/uL (150-450)
[2024-02-12 05:26] LABS: D-DIMER 10.22 mg/L(FEU (0.17-0.50); INR 1.18 (0.91-1.10); PARTIAL THROMBOPLASTIN TIME 32.2 SEC (24.3-34.3); PROTHROMBIN TIME 12.4 SECS (9.2-11.1)
[2024-02-12] MEDS: POTASSIUM CL. PREMIX PERIPHER. 50 ML IV SCH (06:27)
[2024-02-12 06:53] LABS: BAND % (MANUAL) 4 % (0.0-5.0); LYMPHOCYTES % (MANUAL) 4 % (16-48); MONOCYTES % (MANUAL) 2 % (0-11.0); NEUTROPHILS % (MANUAL) 90 (42-76)
[2024-02-12 06:58] LABS: PLATELET ESTIMATE DECREASED
[2024-02-12 07:02] LABS: ANISOCYTOSIS 1+
[2024-02-12] MEDS ORDERED: POTASSIUM CL. PREMIX PERIPHER. 50 ML IV SCH ×2 (08:00→13:00)
[2024-02-12 08:11] LABS: FOLIC ACID 10.1 ng/mL (>3.0)
[2024-02-12 08:53] LABS: ABG BASE EXCESS -8.1 mmol/L (-2.0-3.0); ABG OXYGEN SATURATION 94.7 % (94.0-98.0); ABG PCO2 45.7 mmHg (32.0-45.0); ABG PH 7.236 (7.350-7.450); ABG PO2 82.4 mmHg (83.0-108.0); ABG TOTAL HEMOGLOBIN 10.2 G/dL (12.0-16.0); COHb 0.3 % (0.5-1.5); MetHb 0.4 % (0.0-1.5)
[2024-02-12] MEDS: Potassium Chloride 20 MEQ in IV D5/0.45 NACL 1,000 ML IV SCH (09:28)
[2024-02-12] MEDS: VANCOMYCIN 500 MG in IV D5W 100 ML IV SCH (09:51)
[2024-02-12] MEDS: Magnesium 1GM/D5W 100ML PREMIX 100 ML IV SCH (10:05)
[2024-02-12 10:07] LABS: FREE KAPPA LT CHAINS SERUM 52.9 mg/L (3.3-19.4); FREE LAMBDA LT CHAIN SERUM 38.5 mg/L (5.7-26.3); HEPATITIS B SURFACE AB Non Reactive (.); KAPPA/LAMBDA RATIO SERUM 1.37 (0.26-1.65)
[2024-02-12] MEDS ORDERED: TPN BAG #3 IV SCH (15:00)
== END 2024-02-12 22:50 | disposition short-term general hospital (02) | DRG 253 ==
LOC: ER 02:31 → ICU 13:35
PROVIDERS: ADMIT Internal Medicine; ATTEND Internal Medicine
PROC: 5A1935Z Respiratory Ventilation, Less than 24 Consecutive Hours (ICD-10-PCS; principal; 2024-02-06)
PROC: 0BH17EZ Insertion of Endotracheal Airway into Trachea, Via Natural or Artificial Opening (ICD-10-PCS; 2024-02-06)
PROC: 02HV33Z Insertion of Infusion Device into Superior Vena Cava, Percutaneous Approach (ICD-10-PCS; 2024-02-06)
PROC: B548ZZA Ultrasonography of Superior Vena Cava, Guidance (ICD-10-PCS; 2024-02-06)
PROC: 5A09557 Assistance with Respiratory Ventilation, Greater than 96 Consecutive Hours, Continuous Positive Airway Pressure (ICD-10-PCS; 2024-02-07)
PROC: 0W993ZX Drainage of Right Pleural Cavity, Percutaneous Approach, Diagnostic (ICD-10-PCS; 2024-02-07)
PROC: 04HK33Z Insertion of Infusion Device into Right Femoral Artery, Percutaneous Approach (ICD-10-PCS; 2024-02-07)
PROC: 30233N1 Transfusion of Nonautologous Red Blood Cells into Peripheral Vein, Percutaneous Approach (ICD-10-PCS; 2024-02-10)
PROC: 30233R1 Transfusion of Nonautologous Platelets into Peripheral Vein, Percutaneous Approach (ICD-10-PCS; 2024-02-10)
PROC: 30233K1 Transfusion of Nonautologous Frozen Plasma into Peripheral Vein, Percutaneous Approach (ICD-10-PCS; 2024-02-11)
PROC: 5A2204Z Restoration of Cardiac Rhythm, Single (ICD-10-PCS; 2024-02-11)
DX: K92.2 Gastrointestinal hemorrhage, unspecified (principal); N17.0 Acute kidney failure with tubular necrosis; J96.01 Acute respiratory failure with hypoxia; I46.9 Cardiac arrest, cause unspecified; G93.41 Metabolic encephalopathy; E43 Unspecified severe protein-calorie malnutrition; D68.9 Coagulation defect, unspecified; K81.9 Cholecystitis, unspecified; E88.09 Other disorders of plasma-protein metabolism, not elsewhere classified; M62.82 Rhabdomyolysis; E86.0 Dehydration; E87.0 Hyperosmolality and hypernatremia; G80.9 Cerebral palsy, unspecified; Q87.19 Other congenital malformation syndromes predominantly associated with short stature; Z20.822 Contact with and (suspected) exposure to COVID-19; J45.909 Unspecified asthma, uncomplicated; K21.9 Gastro-esophageal reflux disease without esophagitis; J96.02 Acute respiratory failure with hypercapnia; F79 Unspecified intellectual disabilities; Z88.5 Allergy status to narcotic agent; Z88.0 Allergy status to penicillin; Z88.8 Allergy status to other drugs, medicaments and biological substances; Z79.51 Long term (current) use of inhaled steroids; Z79.899 Other long term (current) drug therapy; E87.6 Hypokalemia; Q89.8 Other specified congenital malformations; F50.83 Pica in adults; Z68.1 Body mass index [BMI] 19.9 or less, adult; F29 Unspecified psychosis not due to a substance or known physiological condition; E87.4 Mixed disorder of acid-base balance; E87.1 Hypo-osmolality and hyponatremia; E87.5 Hyperkalemia; G47.33 Obstructive sleep apnea (adult) (pediatric); M89.8X9 Other specified disorders of bone, unspecified site; J39.8 Other specified diseases of upper respiratory tract; D64.9 Anemia, unspecified; F73 Profound intellectual disabilities; J90 Pleural effusion, not elsewhere classified; J98.11 Atelectasis; N39.0 Urinary tract infection, site not specified; J93.9 Pneumothorax, unspecified; G47.30 Sleep apnea, unspecified
CPT/HCPCS: 31720; 36415; 36600; 71045-TC; 74018; 76700-TC; 80048-TC; 80053-TC; 80061-TC; 80076-TC; 80202-TC; 81001; 82040-TC; 82248-TC; 82272-TC; 82550-TC; 82553; 82570-TC; 82607-TC; 82728-TC; 82803-TC; 82962-TC; 83540-TC; 83605-TC; 83735-TC; 83880; 83970; 84100-TC; 84134-TC; 84155; 84165; 84300-TC; 84443-TC; 84478-TC; 84484-TC; 84702-TC; 84703-TC; 85025-TC; 85027-TC; 85396; 85730-TC; 86140-TC; 86225; 86235; 86431-TC; 86706; 86803; 86850-TC; 87040-TC; 87081-TC; 87086-TC; 87340; 92950-TC; 93307-TC; 93970-TC; 94660; 94760-TC; 94762-TC; 94799-TC; 99082-TC; A4216; A4223; A4623; A4624; G0378; J0171; J0330; J0610; J0692; J1200; J1265; J1720; J1815; J2470; J2704; J2916; J3370; J3430; J3475; J3480; J3490; J7030; J7040; J7050; J7060; J7070; J7120; P9016; P9017; P9034; P9047